=== PATIENT | male | born 1965 | race Asian ===

== ENCOUNTER 2021-10-10 21:57 | Observation (INO) | payer BC ==
[~2021-10-10 21:57] MED LIST: Iopamidol-370 76% 500 ML 1 ML ONE
[2021-10-10] MEDS ORDERED: Morphine 4 MG/ML VIAL ONE (22:22)
[2021-10-10] MEDS ORDERED: Ondansetron PF 4 MG/2 ML Vial ONE (22:22)
[2021-10-10 22:42] LABS: #Lymphocytes 1.2 thou/uL (1.20-3.40); #Monocytes 0.3 thou/uL (0.11-0.59); #Neutrophils 12.3 thou/uL (1.40-6.50); %Basophils 0.1 % (0.0-1.0); %Eosinophils 0.1 % (0.0-10.0); %Lymphocytes 8.9 % (21.0-51.0); %Monocytes 2.1 % (0.0-10.0); %Neutrophils 88.8 % (42.0-75.0); Hemoglobin 15.2 g/dL (14.0-18.0); Mean Corpuscular HGB CONC 33.7 g/dL (32.0-36.0); Mean Corpuscular Hemoglobin 30.4 pg (27.0-31.0); Mean Corpuscular Volume 90.3 fL (78.0-98.0); Mean Platelet Volume 7.7 fL (7.4-10.4); Platelet Count 283 thou/uL (130-400); RBC Distribution Width 11.7 % (11.5-14.5); Red Blood Cell (RBC) Count 4.98 mill/uL (4.70-6.10); White Blood Cell (WBC) Count 13.8 thou/uL (4.8-10.8)
[2021-10-10 23:05] LABS: ALT (SGPT) 38 U/L (8-55); AST (SGOT) 27 U/L (5-34); Albumin 4.8 g/dL (3.5-5.0); Alkaline Phosphatase 63 U/L (40-110); Anion Gap 21 mmol/L (10-20); BUN (Urea Nitrogen) 26 mg/dL (8.4-25.7); Bilirubin, Total 0.5 mg/dL (0.2-1.2); Calc. Creatinine Clearance 0 mL/min (70-130); Calcium 9.9 mg/dL (7.8-10.44); Carbon Dioxide 17 mmol/L (22-29); Chloride 106 mmol/L (98-107); Estimated GFR 77; Globulin 3.1 g/dL (2.4-3.5); Glucose 172 mg/dL (70-105); Lipase 15 U/L (8-78); Potassium 3.8 mmol/L (3.5-5.1); Protein, Total 7.9 g/dL (6.0-8.3); Sodium 140 mmol/L (136-145)
[2021-10-10] MEDS ORDERED: Lidocaine Viscous Sol 2% 15 ml UD Cup ONE (23:06)
[2021-10-10] MEDS ORDERED: Mag-Al 1200 mg/1200 mg/30 ML UDCUP ONE (23:06)
[2021-10-11] MEDS ORDERED: Ondansetron PF 4 MG/2 ML Vial IVP PRN (01:49)
[2021-10-11] MEDS ORDERED: Morphine 2 MG/ML VIAL SLOW IVP PRN (01:51)
[2021-10-11] MEDS ORDERED: hydrALAZINE 20 MG/ML VIAL SLOW IVP PRN (01:51)
[2021-10-11 02:21] LABS: Magnesium 2.1 mg/dL (1.6-2.6)
[2021-10-11 03:01] VITALS: BMI 27.4
[2021-10-11] MEDS: metroNIDAZOLE 500 MG in Premix Bag 1 BAG IVPB SCH ×2 (03:14→11:56)
[2021-10-11] MEDS: Potassium Chloride 10 MEQ in Dextrose 5%-Lactated Ringers 1,000 ML IV SCH ×2 (03:26→11:56)
[2021-10-11] MEDS ORDERED: Zolpidem Tartrate 5 MG TAB PO SCH ×2 (03:30→21:00)
[2021-10-11 03:58] LABS: Bacteria/HPF None Seen HPF (None Seen); Bilirubin Negative (Negative); Blood, Urine Negative (Negative); Clarity Clear (Clear); Glucose, Urine (Dipstick) Normal (Negative); Ketone, Urine Negative (Negative); Leukocyte Negative Leu/uL (Negative); Nitrite Negative (Negative); Protein, Urine (Dipstick) Negative (Neg-Trace); RBC/HPF 0-3 HPF (0-3); Squamous Epithelial 0-3 HPF (0-3); Urobilinogen Normal mg/dL (Less than 2); WBC/HPF 0-3 HPF (0-3); pH, Urine 6.5 (5.0-9.0)
[2021-10-11 03:59] LABS: Specific Gravity, Urine Greater than 1.060 (1.002-1.036)
[2021-10-11 07:25] LABS: #Lymphocytes 1.6 thou/uL (1.20-3.40); #Monocytes 0.9 thou/uL (0.11-0.59); #Neutrophils 11.2 thou/uL (1.40-6.50); %Basophils 0.2 % (0.0-1.0); %Eosinophils 0.2 % (0.0-10.0); %Lymphocytes 11.7 % (21.0-51.0); %Monocytes 6.8 % (0.0-10.0); %Neutrophils 81.2 % (42.0-75.0); Hemoglobin 13.2 g/dL (14.0-18.0); Mean Corpuscular HGB CONC 33.8 g/dL (32.0-36.0); Mean Corpuscular Volume 91.8 fL (78.0-98.0); Mean Platelet Volume 7.9 fL (7.4-10.4); Platelet Count 243 thou/uL (130-400); RBC Distribution Width 11.6 % (11.5-14.5); Red Blood Cell (RBC) Count 4.25 mill/uL (4.70-6.10); White Blood Cell (WBC) Count 13.8 thou/uL (4.8-10.8)
[2021-10-11 07:41] LABS: ALT (SGPT) 32 U/L (8-55); AST (SGOT) 21 U/L (5-34); Alkaline Phosphatase 51 U/L (40-110); Anion Gap 16 mmol/L (10-20); BUN (Urea Nitrogen) 21 mg/dL (8.4-25.7); Bilirubin, Total 0.8 mg/dL (0.2-1.2); Calc. Creatinine Clearance 102 mL/min (70-130); Carbon Dioxide 22 mmol/L (22-29); Chloride 106 mmol/L (98-107); Estimated GFR 101; Globulin 2.7 g/dL (2.4-3.5); Glucose 117 mg/dL (70-105); Potassium 3.7 mmol/L (3.5-5.1); Protein, Total 6.7 g/dL (6.0-8.3); Sodium 140 mmol/L (136-145)
[2021-10-11] MEDS ORDERED: Famotidine/PF 20 mg/2ml Vial SLOW IVP SCH (09:00)
[2021-10-11] MEDS ORDERED: Enoxaparin Sodium 40 MG/0.4 ML SYRINGE SC SCH (09:00)
[2021-10-11] MEDS ORDERED: Magnevist 469MG/ML 20 ML VIAL ONE (10:16)
[2021-10-11 11:49] VITALS: BP 122/73; TEMP 98.5
== END 2021-10-11 17:23 | disposition home or self-care (01) ==
LOC: ERS 21:57 → T4-A 10-11 02:01
PROVIDERS: ADMIT Family Medicine; ATTEND Family Medicine
DX: K52.9 Noninfective gastroenteritis and colitis, unspecified (principal); E87.2 Acidosis; K76.0 Fatty (change of) liver, not elsewhere classified; K76.89 Other specified diseases of liver; E78.5 Hyperlipidemia, unspecified; G47.00 Insomnia, unspecified
CPT/HCPCS: 36415; 74018; 74177; 74183; 80053; 81001; 83690; 83735; 84484; 85025; 93005; 96361; 96365; 96367; 96372; 96374; 96375; 96376; A9579; G0378; J1650; J1956; J2270; J2405; J3480; Q9967; S0028; U0003; U0005

== ENCOUNTER 2022-05-19 17:26 | Observation (INO) | payer BC ==
[2022-05-19 20:38] VITALS: BMI 25.9
[2022-05-19] MEDS ORDERED: Ondansetron ODT 4 MG TAB PO PRN (20:46)
[2022-05-19] MEDS ORDERED: Senokot S 8.6-50 MG TAB PO PRN (20:46)
[2022-05-19] MEDS ORDERED: Acetaminophen 325 MG TAB PO PRN (20:46)
[2022-05-19] MEDS ORDERED: Dextrose 5%-Lactated Ringers 1,000 ML IV SCH (21:00)
[2022-05-19 21:27] LABS: #Eosinphils 0.1 thou/uL (0.0-0.7); #Lymphocytes 1.3 thou/uL (1.20-3.40); #Monocytes 0.4 thou/uL (0.11-0.59); #Neutrophils 4.2 thou/uL (1.40-6.50); %Basophils 0.1 % (0.0-1.0); %Eosinophils 1.4 % (0.0-10.0); %Monocytes 6.4 % (0.0-10.0); %Neutrophils 70.1 % (42.0-75.0); Hemoglobin 15.1 g/dL (14.0-18.0); Mean Corpuscular HGB CONC 33.8 g/dL (32.0-36.0); Mean Corpuscular Volume 91.5 fl (78.0-98.0); Mean Platelet Volume 7.8 fL (7.4-10.4); Platelet Count 227 10x3/uL (130-400); RBC Distribution Width 11.8 % (11.5-14.5); Red Blood Cell (RBC) Count 4.87 mill/uL (4.70-6.10)
[2022-05-19 21:44] LABS: ALT (SGPT) 425 U/L (8-55); AST (SGOT) 176 U/L (5-34); Albumin 4.1 g/dL (3.5-5.0); Alkaline Phosphatase 58 U/L (40-110); Anion Gap 11 mmol/L (10-20); BUN (Urea Nitrogen) 15 mg/dL (8.4-25.7); Bilirubin, Total 0.4 mg/dL (0.2-1.2); Calc. Creatinine Clearance 100 mL/min (70-130); Calcium 9.2 mg/dL (7.8-10.44); Carbon Dioxide 23 mmol/L (22-29); Chloride 103 mmol/L (98-107); Estimated GFR 101; Glucose 108 mg/dL (70-105); Potassium 3.4 mmol/L (3.5-5.1); Protein, Total 7.1 g/dL (6.0-8.3); Sodium 134 mmol/L (136-145)
[2022-05-19] MEDS: Famotidine 20 MG TAB PO SCH (22:16)
[2022-05-19] MEDS: Zolpidem Tartrate 5 MG TAB PO PRN (22:17)
[2022-05-20] MEDS: Famotidine 20 MG TAB PO SCH ×2 (08:22→20:47)
[2022-05-20] MEDS: Zolpidem Tartrate 5 MG TAB PO PRN (20:49)
[2022-05-20] MEDS ORDERED: Cholecalciferol 1,000 UNITS (25 MCG) TAB PO SCH (21:00)
[2022-05-20] MEDS ORDERED: Fenofibrate Nanocrystallized 145 MG TAB PO SCH (21:00)
[2022-05-20] MEDS ORDERED: Fish Oil 1,000 MG CAP PO SCH (21:00)
[2022-05-20] MEDS ORDERED: Nortriptyline 10 MG CAP PO SCH (21:00)
[2022-05-21 07:00] LABS: #Eosinphils 0.2 thou/uL (0.0-0.7); #Lymphocytes 1.7 thou/uL (1.20-3.40); #Monocytes 0.6 thou/uL (0.11-0.59); #Neutrophils 3.7 thou/uL (1.40-6.50); %Basophils 0.3 % (0.0-1.0); %Eosinophils 3.5 % (0.0-10.0); %Lymphocytes 26.9 % (21.0-51.0); %Monocytes 9.5 % (0.0-10.0); %Neutrophils 59.8 % (42.0-75.0); Hemoglobin 14.2 g/dL (14.0-18.0); Mean Corpuscular HGB CONC 33.6 g/dL (32.0-36.0); Mean Corpuscular Hemoglobin 30.7 pg (27.0-31.0); Mean Corpuscular Volume 91.4 fl (78.0-98.0); Mean Platelet Volume 7.9 fL (7.4-10.4); Platelet Count 247 10x3/uL (130-400); RBC Distribution Width 11.7 % (11.5-14.5); Red Blood Cell (RBC) Count 4.61 mill/uL (4.70-6.10); White Blood Cell (WBC) Count 6.1 10x3/uL (4.8-10.8)
[2022-05-21 07:25] LABS: ALT (SGPT) 198 U/L (8-55); AST (SGOT) 45 U/L (5-34); Albumin 3.7 g/dL (3.5-5.0); Alkaline Phosphatase 57 U/L (40-110); Anion Gap 13 mmol/L (10-20); BUN (Urea Nitrogen) 11 mg/dL (8.4-25.7); Bilirubin, Total 0.4 mg/dL (0.2-1.2); CK (CPK) 189 U/L (30-200); Calc. Creatinine Clearance 92 mL/min (70-130); Calcium 9.1 mg/dL (7.8-10.44); Carbon Dioxide 21 mmol/L (22-29); Chloride 107 mmol/L (98-107); Estimated GFR 95; Globulin 2.8 g/dL (2.4-3.5); Glucose 85 mg/dL (70-105); Potassium 3.5 mmol/L (3.5-5.1); Protein, Total 6.5 g/dL (6.0-8.3); Sodium 137 mmol/L (136-145)
[2022-05-21] MEDS: Famotidine 20 MG TAB PO SCH (08:43)
[2022-05-21 12:32] VITALS: BP 127/89; TEMP 98
== END 2022-05-21 12:32 | disposition home or self-care (01) ==
LOC: INTOOBSV 17:26 → T4-A 17:26
PROVIDERS: ADMIT Internal Medicine; ATTEND Internal Medicine
DX: K56.609 Unspecified intestinal obstruction, unspecified as to partial versus complete obstruction (principal); E87.1 Hypo-osmolality and hyponatremia; E87.6 Hypokalemia; R79.89 Other specified abnormal findings of blood chemistry; R74.01 Elevation of levels of liver transaminase levels; K80.20 Calculus of gallbladder without cholecystitis without obstruction; K76.0 Fatty (change of) liver, not elsewhere classified; G47.00 Insomnia, unspecified; Z79.899 Other long term (current) drug therapy; Z20.822 Contact with and (suspected) exposure to COVID-19
CPT/HCPCS: 36415; 36416; 74018; 80053; 82550; 85025; G0378; G0379; U0003; U0005

== ENCOUNTER 2023-02-24 10:34 | Outpatient (CLI) | payer BC | END 2023-02-24 10:35 | disposition home or self-care (01) | LOC: BICRAD 10:34 | PROVIDERS: ATTEND Urology | DX: N20.0 Calculus of kidney (principal); I87.8 Other specified disorders of veins | CPT/HCPCS: 74018 ==